=== PATIENT | female | born 1960 | race Caucasian/White ===

== ENCOUNTER → 2021-03-09 10:25 | Outpatient (CLI) | payer OTHER, SELFPAY ==
[2021-03-09 12:42] LABS: Erythrocyte Sedimentation Rate 7 mm/hr (0-30)
[2021-03-09 12:44] LABS: Absolute Neutrophil Count 2.7 X10^3/uL (2.0-7.7); Basophil# 0.04 X10^3/uL; Basophil% 0.8 % (0-1); Eosinophil# 0.06 X10^3/uL; Eosinophils% 1.2 % (0-5); Hematocrit 48.1 % (37-47); Hemoglobin 15.6 g/dL (12.0-15.0); Lymphocyte % 35.3 % (19-41); Mean Corp Hgb Conc 32.4 g/dL (32-36); Mean Corpuscular Hgb 29.3 pg (27.0-32.0); Mean Corpuscular Volume 90.4 fL (81-99); Mean Platelet Vol. 11.3 fl (6.2-12.0); Monocyte# 0.45 X10^3/uL; Monocyte% 8.8 % (0-10); NRBC Flagged by Analyzer 0 % (0-5); Neutrophil # 2.73 X10^3/uL (2.7-7.7); Neutrophil % 53.5 % (47-70); Platelet Count 342 K/mm3 (150-450); RBC Distribution Width CV 12.3 % (11.6-14.6); RBC Distribution Width SD 40.3 fl (35.1-43.9); Red Blood Count 5.32 M/mm3 (4.2-5.4); White Blood Count 5.1 K/mm3 (4.4-11.0)
[2021-03-09 12:51] LABS: ALB/GLOB Ratio 0.8 RATIO (0.9-2.4); AST(SGOT) 18 U/L (15-37); Alanine Aminotransfer ALT/SGPT 33 U/L (13-56); Albumin, Serum 3.8 g/dL (3.2-5.0); Alkaline Phosphatase 93 U/L (45-117); Anion Gap 4 (5-15); BUN 13 mg/dL (7-18); BUN/Creat Ratio 21.7 RATIO (10-20); CRP 3.56 mg/L (0.0-3.0); Calcium,Total 9.6 mg/dL (8.5-10.1); Chloride 105 mmol/L (98-107); EST Glomerular Filtration Rate 108 mL/min (>60); Est Glom Filt Rate - Afr Amer 131 mL/min (>60); Globulin 4.6 g/dL (2.2-4.2); Glucose 96 mg/dL (74-106); Potassium 4.2 mmol/L (3.5-5.1); Protein, Total 8.4 g/dL (6.4-8.2); Rheumatoid Factor < 10.0 IU/mL (<15); Sodium Level 140 mmol/L (136-145)
[2021-03-09 13:29] LABS: Hepatitis B Surface Antibody Non-Reactive; Hepatitis B Surface Antigen Non-Reactive (Nonreactive); Hepatitis C Antibody Non-Reactive (Nonreactive)
[2021-03-12 13:24] LABS: ANTINUCLEAR ANTIBODIES DIRECT Negative (Negative)
[2021-03-19 18:28] LABS: CCP IgG Antibodies 5 units (0-19); HLA B27 Negative (.)
== END ==
PROVIDERS: PCP Family Medicine; Referring Provider Internal Medicine Rheumatology; Visit Provider Internal Medicine Rheumatology
DX: M06.4 Inflammatory polyarthropathy (principal); M19.041 Primary osteoarthritis, right hand; I10 Essential (primary) hypertension; E78.5 Hyperlipidemia, unspecified; F41.9 Anxiety disorder, unspecified
CPT/HCPCS: 36415; 80053; 81374; 85025; 85652; 86038; 86140; 86200; 86431; 86706; 86803; 87340